=== PATIENT | female | born 1950 | race Caucasian/White ===

== ENCOUNTER 2016-05-27 17:01 | Emergency (ER) | payer OTHER ==
[~2016-05-27] VITALS: Ht 157.4 cm; Wt 64.4 kg
[~2016-05-27 17:01] MED LIST: ALLEGRA ALLERG180 MG PO; AMARY; AMARYL2 MG; ASPIRIN81 M1 PO; ATIVAN0.5 MG PO; BENTYL10 MG PO; CARDIZEM; CARDIZEM CD240 MG PO; CIPROFLOXACIN500 MG PO; COUMADIN6 M1 PO; HYDROCODONE BIT1 T11 PO; INSULIN SC; JANUVIA; JANUVIA100 MG PO; LANTUS100 U/ML SC; LIPITOR; LIPITOR20 MG PO; LISINOPRIL; LISINOPRIL10 MG PO; LOMOTIL 0.025 M1 TA1 PO; MACROBID100 M1 PO; METFORMIN; METFORMIN1000 MG; MIRAPEX; MIRAPEX0.75 MG PO; NASONEX0.05 MG/AC; NEXIUM; NEXIUM40 MG PO; PAXIL CR25 MG; PERCOCET 325 MG1 TA7 PO; PROTONIX40 MG PO; ROXICET 325 MG/55 ML; VICTOZA6 MG/ML; Zofran4 MG PO; [UNRECOGNIZED DRUG - OTHER] PO
[2016-05-27] MEDS ORDERED: Coumadin3 MG PO (17:08)
[2016-05-27] MEDS ORDERED: DEXILANT30 MG PO (17:08)
[2016-05-27] MEDS ORDERED: Lopressor25 MG PO (17:08)
[2016-05-27] MEDS ORDERED: CYMBALTA30 MG PO (17:08)
[2016-05-27 17:48] LABS: BASO # 0.1 10*3/uL (0.0-0.1); BASO % 1.1 % (0.0-1.0); EOS # 0.1 10*3/uL (0.0-0.4); EOS % 2.1 % (1.0-4.0); HEMATOCRIT 32.7 % (37.0-47.0); HEMOGLOBIN 10.3 g/dl (12.0-16.0); LYMPH # 2.1 10*3/uL (1.3-4.4); LYMPH % 44.7 % (27.0-41.0); MEAN CORPUSCULAR HGB 25.8 pg (27.0-31.0); MEAN CORPUSCULAR HGB CONC 31.5 g/dl (33.0-37.0); MEAN PLATELET VOLUME 10.7 fl (9.6-12.3); MONO # 0.2 10*3/uL (0.1-1.0); NEUT # 2.2 10*3/uL (2.3-7.9); NEUT % 46.7 % (47.0-73.0); PLATELET COUNT AUTOMATED 277 10*3/uL (130-400); RED BLOOD COUNT 3.99 10*6/uL (4.10-5.10); RED CELL DISTRI WIDTH 19.8 % (0-14.5); WHITE BLOOD COUNT 4.8 10*3/uL (4.8-10.8)
[2016-05-27 18:04] LABS: ALBUMIN 3.4 gm/dl (3.1-4.5); BILIRUBIN, TOTAL 0.3 mg/dl (0.2-1.0); MAGNESIUM 1.5 mg/dL (1.5-2.1); POTASSIUM 4.3 mmol/L (3.5-5.1); TOTAL PROTEIN 6.9 gm/dL (6.4-8.2)
[2016-05-27 18:13] LABS: BILIRUBIN NEGATIVE (NEGATIVE); BLOOD 2+ (NEGATIVE); CLARITY SL CLOUDY (CLEAR); COLOR YELLOW (YELLOW); GLUCOSE NEGATIVE (NEGATIVE); KETONE NEGATIVE (NEGATIVE); LEUKO ESTERASE 1+ (NEGATIVE); NITRITE NEGATIVE (NEGATIVE); PH 5.5 (5.0-9.0); PROTEIN TRACE (NEGATIVE); SPECIFIC GRAVITY 1.025 (1.005-1.030); UROBILINOGEN 0.2 E.U./dl (0.2-1.0)
[2016-05-27 18:26] LABS: BACTERIA 3+; EPITHELIAL CELLS 15-20; RBC TNTC rbc/hpf (0-2); URINE REFLEX COMMENT YES (NO); WBC TNTC wbc/hpf (0-5)
[2016-05-27] MEDS ORDERED: CIPRO500 MG PO (18:40)
== END 2016-05-27 18:52 | disposition home or self-care (01) ==
LOC: ED 17:01
PROVIDERS: Emergency Medicine
DX: N39.0 Urinary tract infection, site not specified (principal); R31.9 Hematuria, unspecified; K21.9 Gastro-esophageal reflux disease without esophagitis; Z90.89 Acquired absence of other organs; Z96.651 Presence of right artificial knee joint; Z87.442 Personal history of urinary calculi; Z79.899 Other long term (current) drug therapy; Z79.01 Long term (current) use of anticoagulants

== ENCOUNTER → 2016-06-10 | Outpatient (CLI) | payer OTHER ==
[~2016-06-10] MED LIST changes: +CIPRO500 MG PO; +CYMBALTA30 MG PO; +Coumadin3 MG PO; +DEXILANT30 MG PO; +Lopressor25 MG PO
== END | disposition home or self-care (01) ==
LOC: US 09:24
DX: N13.5 Crossing vessel and stricture of ureter without hydronephrosis (principal); R19.00 Intra-abdominal and pelvic swelling, mass and lump, unspecified site; N35.9 Urethral stricture, unspecified; Z85.01 Personal history of malignant neoplasm of esophagus

== ENCOUNTER 2016-07-07 20:58 | Emergency (ER) | payer OTHER ==
[~2016-07-07] VITALS: Ht 157.4 cm; Wt 63.5 kg
[2016-07-07] MEDS ORDERED: OXYCODONE AND A1 TA4 PO (21:10)
[2016-07-07 21:48] LABS: BASO % 0.5 % (0.0-1.0); EOS # 0.1 10*3/uL (0.0-0.4); EOS % 1.2 % (1.0-4.0); HEMATOCRIT 33.9 % (37.0-47.0); HEMOGLOBIN 10.6 g/dl (12.0-16.0); IG # 0.1 10*3/uL (0.0-0.1); LYMPH # 1.3 10*3/uL (1.3-4.4); LYMPH % 15.4 % (27.0-41.0); MEAN CELL VOLUME 85.2 fl (81.0-99.0); MEAN CORPUSCULAR HGB 26.6 pg (27.0-31.0); MEAN CORPUSCULAR HGB CONC 31.3 g/dl (33.0-37.0); MEAN PLATELET VOLUME 10.2 fl (9.6-12.3); MONO # 0.3 10*3/uL (0.1-1.0); MONO % 3.8 % (3.0-9.0); NEUT # 6.4 10*3/uL (2.3-7.9); NEUT % 78.5 % (47.0-73.0); PLATELET COUNT AUTOMATED 335 10*3/uL (130-400); RED BLOOD COUNT 3.98 10*6/uL (4.10-5.10); RED CELL DISTRI WIDTH 17.5 % (0-14.5); WHITE BLOOD COUNT 8.2 10*3/uL (4.8-10.8)
[2016-07-07 22:10] LABS: ALBUMIN 3.3 gm/dl (3.1-4.5); BILIRUBIN, TOTAL 0.2 mg/dl (0.2-1.0); TOTAL PROTEIN 7.5 gm/dL (6.4-8.2)
[2016-07-07 23:32] LABS: BILIRUBIN NEGATIVE (NEGATIVE); BLOOD 1+ (NEGATIVE); CLARITY SL CLOUDY (CLEAR); COLOR YELLOW (YELLOW); GLUCOSE NEGATIVE (NEGATIVE); KETONE 1+ (NEGATIVE); LEUKO ESTERASE 1+ (NEGATIVE); NITRITE NEGATIVE (NEGATIVE); PH 5.5 (5.0-9.0); PROTEIN 1+ (NEGATIVE); SPECIFIC GRAVITY 1.025 (1.005-1.030); UROBILINOGEN 0.2 E.U./dl (0.2-1.0)
[2016-07-07 23:40] LABS: BACTERIA TRACE; URINE REFLEX COMMENT YES (NO); WBC TNTC wbc/hpf (0-5)
== END 2016-07-08 01:27 | disposition short-term general hospital (02) ==
LOC: ED 20:58
PROVIDERS: Emergency Medicine
DX: K56.60 Unspecified intestinal obstruction (principal); Z79.82 Long term (current) use of aspirin; Z79.899 Other long term (current) drug therapy

== ENCOUNTER 2016-08-11 07:25 | Emergency (ER) | payer OTHER ==
[~2016-08-11] VITALS: Ht 152.4 cm; Wt 60.0 kg
[~2016-08-11 07:25] MED LIST changes: +OXYCODONE AND A1 TA4 PO
[2016-08-11 08:02] LABS: HEMATOCRIT 25.1 % (37.0-47.0); HEMOGLOBIN 7.4 g/dl (12.0-16.0); MEAN CELL VOLUME 90.3 fl (81.0-99.0); MEAN CORPUSCULAR HGB 26.6 pg (27.0-31.0); MEAN CORPUSCULAR HGB CONC 29.5 g/dl (33.0-37.0); MEAN PLATELET VOLUME 10.7 fl (9.6-12.3); NUCLEATED RED BLOOD CELL 0.1 10*3/uL (0.0-0.0); NUCLEATED RED BLOOD CELL 0.4 % (0.0-0.0); PLATELET COUNT AUTOMATED 602 10*3/uL (130-400); RED BLOOD COUNT 2.78 10*6/uL (4.10-5.10); RED CELL DISTRI WIDTH 15.6 % (0-14.5); WHITE BLOOD COUNT 19.4 10*3/uL (4.8-10.8)
[2016-08-11 08:07] LABS: BILIRUBIN 1+ (NEGATIVE); BLOOD 3+ (NEGATIVE); CLARITY CLOUDY (CLEAR); COLOR RED (YELLOW); GLUCOSE NEGATIVE (NEGATIVE); KETONE NEGATIVE (NEGATIVE); LEUKO ESTERASE 3+ (NEGATIVE); NITRITE NEGATIVE (NEGATIVE); PROTEIN 2+ (NEGATIVE); SPECIFIC GRAVITY 1.015 (1.005-1.030); UROBILINOGEN 0.2 E.U./dl (0.2-1.0)
[2016-08-11 08:19] LABS: RBC TNTC rbc/hpf (0-2); URINE REFLEX COMMENT YES (NO); WBC TNTC wbc/hpf (0-5)
[2016-08-11 08:20] LABS: BURR CELLS MANY; LYMPHOCYTE # 5.2 10*3/uL (1.3-4.4); MONOCYTE # 0.4 10*3/uL (0.1-1.0); NEUTROPHIL # 13.8 10*3/uL (2.3-7.9); NEUTROPHILS 71 % (47-73); PLATELET SUFFICIENCY HIGH (NORMAL); TOTAL CELLS COUNTED 100 #CELLS; TOXIC GRANULATION MODERATE
[2016-08-11 08:21] LABS: OVALOCYTES FEW; POLYCHROMASIA SLIGHT
[2016-08-11 08:22] LABS: ALBUMIN 1.5 gm/dl (3.1-4.5); BILIRUBIN, TOTAL 0.3 mg/dl (0.2-1.0); POTASSIUM 5.9 mmol/L (3.5-5.1); TOTAL PROTEIN 4.4 gm/dL (6.4-8.2)
[2016-08-11 08:26] LABS: TROPONIN I 0.287 ng/ml (<0.045)
[2016-08-11 08:37] LABS: PROTHROMBIN TIME 124.1 SECONDS (9.0-12.4)
[2016-08-11 08:40] LABS: INTERNATIONAL NORM RATIO 10.1 (2.0-3.5)
[2016-08-11 10:00] LABS: LA>2 REFLEX 2 HR DRAW NOW
[2016-08-11 10:25] LABS: LA>2 RFLX FOLLOW UP AT 2 HRS 11.6 mmol/L (0.4-2.0)
[2016-08-11 12:15] LABS: LA>2 REFLEX 4 HR DRAW NOW
== END 2016-08-11 11:49 | disposition short-term general hospital (02) ==
LOC: ED 07:25
PROVIDERS: Emergency Medicine
DX: A41.9 Sepsis, unspecified organism (principal); R65.20 Severe sepsis without septic shock; K56.60 Unspecified intestinal obstruction; D68.2 Hereditary deficiency of other clotting factors; C15.9 Malignant neoplasm of esophagus, unspecified; C79.89 Secondary malignant neoplasm of other specified sites; Z79.899 Other long term (current) drug therapy; Z79.82 Long term (current) use of aspirin; Z79.02 Long term (current) use of antithrombotics/antiplatelets; Z79.01 Long term (current) use of anticoagulants